=== PATIENT | female | born 1980 | race African-American/Black ===

== ENCOUNTER 2017-11-26 20:44 | Emergency (ER) | payer SELFPAY ==
[~2017-11-26] VITALS: Ht 160 cm; Wt 70.8 kg
[2017-11-26] MEDS ORDERED: PENICILLIN G BENZATHINE 1,200,000 UNITS/2ML SYR IM ONE (23:00)
[2017-11-26] MEDS ORDERED: DEXAMETHASONE 10 MG/ML VIAL IM ONE (23:30)
[2017-11-27 00:03] VITALS: BP 126/86
== END 2017-11-27 00:06 | disposition home or self-care (01) ==
LOC: ER 21:27
DX: J36 Peritonsillar abscess (principal)
CPT/HCPCS: 81025; 96372; 99284; J0561; J1100